=== PATIENT | female | born 2000 | race Caucasian/White ===

== ENCOUNTER 2021-10-06 07:30 | Inpatient (IN) ==
[2021-10-07] MEDS ORDERED: LR 1,000 ML IV 1,000 ML IV ONE ×4 (07:43→09:59)
[2021-10-07] MEDS ORDERED: ANCEF VIAL 1 GRAM IVP ONE (08:16)
[2021-10-07] MEDS ORDERED: XYLOCAINE-MPF 1% ONE (08:47)
[2021-10-07] MEDS ORDERED: PITOCIN ONE (08:48)
[2021-10-07] MEDS ORDERED: DIPRIVAN VIAL 20 ML ONE (08:48)
[2021-10-07] MEDS ORDERED: D5 1/2 NS 1,000 mL + PITOCIN 20 UNITS/L IV 20 UNITS/1,000 ML BAG IV ONE (08:52)
[2021-10-07] MEDS ORDERED: DILAUDID INJ ONE (08:53)
[2021-10-07] MEDS ORDERED: MARCAINE SPINAL ONE (08:54)
[2021-10-07] MEDS ORDERED: ZOFRAN INJ 4 MG VIAL ONE (08:56)
[2021-10-07] MEDS ORDERED: PEPCID 20 MG VIAL ONE (08:56)
[2021-10-07] MEDS ORDERED: REGLAN INJ 10 MG VIAL ONE (08:56)
[2021-10-07] MEDS ORDERED: NS 100 ML IV 100 ML ONE (08:58)
[2021-10-07] MEDS ORDERED: ANCEF VIAL 1 GRAM ONE (08:59)
[2021-10-07] MEDS ORDERED: KETAMINE HCL ONE (09:16)
[2021-10-07] MEDS ORDERED: EPHEDRINE SULFATE INJ ONE (09:32)
[2021-10-07] MEDS ORDERED: TORADOL 30 MG VIAL ONE ×2 (09:51→10:13)
[2021-10-07] MEDS ORDERED: VERSED ONE (10:01)
[2021-10-07] MEDS ORDERED: ADACEL or BOOSTRIX TDaP VACCINE IM ONE (10:50)
[2021-10-07] MEDS ORDERED: ZOFRAN INJ 4 MG VIAL IVP PRN ×3 (10:50→11:49)
[2021-10-07] MEDS ORDERED: MYLICON TAB 80 MG CHEW PO PRN ×2 (10:50→11:49)
[2021-10-07] MEDS ORDERED: PHENERGAN TAB 25 MG PO PRN ×2 (10:50→11:49)
[2021-10-07] MEDS ORDERED: PERCOCET TAB 5/325 MG PO PRN ×2 (10:50→11:49)
[2021-10-07] MEDS ORDERED: BENADRYL INJ 50 MG VIAL IVP PRN (10:54)
[2021-10-07] MEDS ORDERED: REGLAN INJ 10 MG VIAL IVP PRN (10:54)
[2021-10-07] MEDS ORDERED: BARHEMSYS INJ IVP PRN (10:54)
[2021-10-07] MEDS ORDERED: PHENERGAN INJ 25 MG IM PRN (10:54)
[2021-10-07] MEDS ORDERED: D5 1/2 NS 1,000 ML 1,000 ML with PITOCIN 20 UNITS IV SCH ×4 (11:00→12:00)
[2021-10-07] MEDS ORDERED: TORADOL 30 MG VIAL IVP SCH (11:00)
[2021-10-07] MEDS ORDERED: MOTRIN TAB 800 MG PO PRN (11:45)
[2021-10-07] MEDS: TORADOL 30 MG VIAL IVP SCH ×2 (14:01→19:00)
[2021-10-07] MEDS: FERROUS GLUCONATE PO SCH (14:10)
[2021-10-08] MEDS: TORADOL 30 MG VIAL IVP SCH ×3 (00:58→13:02)
[2021-10-08 05:13] LABS: HEMATOCRIT 25.3 % (36.0-47.0)
[2021-10-08 05:30] LABS: HEMOGLOBIN 8.5 g/dL (12.0-16.0)
[2021-10-08] MEDS: FERROUS GLUCONATE PO SCH (08:14)
[2021-10-08] MEDS ORDERED: PRENATAL PLUS PO SCH ×2 (09:00)
--- NOTE | 2021-10-08 09:22 | NOTE.PROBC ---
Progress Note OB-C/S Subjective Data Subjective: No complaints, decreased lochia. Tolerating regular diet. No N/V. Ambulating well. Boggs draining well. Pain under good control with Toradol. Objective Data Result Diagrams: 10/08/21 04:17 Objective Data: CV= RRR no MRG Lungs=CTA Bilaterally Abd=(+) BS, soft, ND, appropriately tender near incision. Bandage removed. Incision clean/dry/intact, no erythema, no bleeding, no discharge. Dermabond/ Stitches intact. Fundus firm/NT/ at 2 cm below umbilicus. Ext= No edema, NT, No Cords. Graduated Compression Stockings/Sequential Compression Devices Bilaterally. Assessment Assessment: ready for d/c Plan (1) deliv due to previous difficult deliv, [facility]: Plan: ready for d/c
[2021-10-08] MEDS ORDERED: TORADOL 30 MG VIAL IVP PRN ×2 (10:52→12:00)
[2021-10-08] MEDS ORDERED: TORADOL 30 MG VIAL IM PRN (10:52)
[2021-10-08 11:20] VITALS: BP 116/58
[2021-10-08] MEDS ORDERED: MOTRIN TAB 800 MG PO PRN (12:00)
== END 2021-10-08 13:00 | disposition home or self-care (01) | DRG 788 ==
LOC: LD 10-07 07:37 → MED/SURG 10-07 11:24
PROVIDERS: ADMIT Obstetrics & Gynecology; ATTEND Obstetrics & Gynecology
DX: Z37.0 Single live birth; O34.211 Maternal care for low transverse scar from previous cesarean delivery; N85.8 Other specified noninflammatory disorders of uterus; Z3A.39 39 weeks gestation of pregnancy